=== PATIENT | female | born 1990 | race Caucasian/White ===

== ENCOUNTER → 2021-11-29 | Outpatient (CLI) | payer OTHER ==
--- NOTE | 2021-11-29 20:12 | RAD ---
EXAM: XR KNEE _3 [id number]_LT 11/29/2021 7:05 PM CLINICAL INDICATION: Fell today at work COMPARISON: None TECHNIQUE: AP, oblique, and lateral views of the left knee. FINDINGS: No acute fracture. Alignment is normal. Joint spaces are maintained. No joint effusion or soft tissue abnormality. IMPRESSION: Normal left knee radiograph. Electronically signed by: Beverly Umanzor MD (11/29/2021 8:09 PM) [id number]
== END ==
LOC: RAD 18:56
PROVIDERS: ATTEND Nurse Practitioner Family
DX: S89.92XA Unspecified injury of left lower leg, initial encounter (principal); X58.XXXA Exposure to other specified factors, initial encounter; Y93.89 Activity, other specified; Y92.89 Other specified places as the place of occurrence of the external cause; Y99.8 Other external cause status
CPT/HCPCS: 73562